=== PATIENT | female | born 1985 | race African-American/Black ===

== ENCOUNTER 2023-09-24 17:36 | Inpatient (IN) | payer MEDICAID ==
[~2023-09-24] VITALS: Ht 165.1 cm; Wt 68.5 kg
[2023-09-24 18:54] LABS: BASOPHILS # (AUTO) 0.1 K/uL (0.0-0.2); EOSINOPHILS % (AUTO) 0.4 % (0.0-6.0); HEMATOCRIT 26 % (33-45); LYMPHOCYTES # (AUTO) 1.9 K/uL (0.8-4.8); MEAN CORPUSCULAR HEMOGLOBIN 26 PG (26.0-33.0); MEAN CORPUSCULAR HGB CONC 31 g/dl (31.0-36.0); MEAN CORPUSCULAR VOLUME 85 fL (82-100); MONOCYTES # (AUTO) 1.4 K/uL (0.1-1.30); NEUTROPHILS # (AUTO) 4.6 K/uL (1.8-8.9); NEUTROPHILS % (AUTO) 57.7 % (43.0-81.0); PLATELET COUNT (AUTO) 138 K/uL (150-450); RED BLOOD CELL COUNT(AUTO) 3.06 MIL/uL (4.0-5.2); RED CELL DISTRIBUTION WIDTH 21.3 % (11.5-15.0)
[2023-09-24 18:56] LABS: LYMPHOCYTES % (AUTO) 28.1 % (20.0-44.0); MONOCYTES % (AUTO) 12.8 % (2.0-12.0)
[2023-09-24 19:00] LABS: CALCIUM, SERUM 9.1 mg/dL (8.5-10.1); CREATININE 1.4 mg/dL (0.6-1.3); POTASSIUM 4.2 mmol/L (3.5-5.1)
[2023-09-24] MEDS: IV NS 0.9% 1,000 ML BAG IV ONE (19:04)
[2023-09-24] MEDS ORDERED: POTASSIUM CHLORIDE 20 MEQ TAB.PRT.SR PO ONE (19:18)
[2023-09-24] MEDS ORDERED: POTASSIUM CL. PREMIX PERIPHER. 100 ML ONE (19:18)
[2023-09-24] MEDS: POTASSIUM CHLORIDE 20 MEQ TAB.PRT.SR PO ONE (19:32)
[2023-09-24] MEDS: POTASSIUM CL. PREMIX PERIPHER. 50 ML IV SCH (19:32)
[2023-09-24] MEDS ORDERED: IV NS 0.9% 250 ML IV ONE (20:17)
[2023-09-24] MEDS ORDERED: IOHEXOL-350 100 ML VIAL IV ONE (20:17)
[2023-09-25] MEDS ORDERED: ONDANSETRON HCL/PF 4 MG/2 ML VIAL IV PRN (01:30)
[2023-09-25] MEDS ORDERED: MORPHINE SULFATE INJ 4 MG/ML DISP.SYRIN IM PRN (01:30)
[2023-09-25 04:33] VITALS: BP 129/96; TEMP 98.8; O2SAT 99
[2023-09-25 08:00] VITALS: BP 124/88; TEMP 98.4; O2SAT 100
[2023-09-25] MEDS ORDERED: IBUP-2715 PO (08:05)
[2023-09-25] MEDS ORDERED: SENN-261 PO (08:05)
[2023-09-25] MEDS ORDERED: ASCO-340 PO (08:05)
[2023-09-25] MEDS ORDERED: DICL75TA5 PO (08:05)
[2023-09-25] MEDS ORDERED: MAGN200T4 PO (08:05)
[2023-09-25] MEDS ORDERED: DIPH50CA4 PO (08:05)
[2023-09-25] MEDS ORDERED: ONDA-97 PO (08:05)
[2023-09-25] MEDS ORDERED: ACET-2030 PO (08:05)
[2023-09-25 09:40] LABS: BASOPHILS # (AUTO) 0.1 K/uL (0.0-0.2); BASOPHILS % (AUTO) 0.9 % (0.0-2.0); EOSINOPHILS % (AUTO) 0.4 % (0.0-6.0); HEMATOCRIT 24 % (33-45); HEMOGLOBIN 7.4 g/dL (11.5-14.8); LYMPHOCYTES # (AUTO) 2.1 K/uL (0.8-4.8); MEAN CORPUSCULAR HEMOGLOBIN 27 PG (26.0-33.0); MEAN CORPUSCULAR HGB CONC 31 g/dl (31.0-36.0); MEAN CORPUSCULAR VOLUME 86 fL (82-100); MONOCYTES # (AUTO) 1.3 K/uL (0.1-1.30); MONOCYTES % (AUTO) 17.2 % (2.0-12.0); NEUTROPHILS # (AUTO) 4.1 K/uL (1.8-8.9); NEUTROPHILS % (AUTO) 53.5 % (43.0-81.0); PLATELET COUNT (AUTO) 131 K/uL (150-450); RED BLOOD CELL COUNT(AUTO) 2.78 MIL/uL (4.0-5.2); RED CELL DISTRIBUTION WIDTH 21.3 % (11.5-15.0); WHITE BLOOD COUNT (AUTO) 7.6 K/uL (4.3-11.0)
[2023-09-25] MEDS: Potassium Chloride 10 MEQ in IV D5/ 0.9% NACL 1,000 ML IV SCH (09:46)
[2023-09-25 09:50] LABS: CALCIUM, SERUM 9.2 mg/dL (8.5-10.1); CREATININE 1.2 mg/dL (0.6-1.3); POTASSIUM 4.5 mmol/L (3.5-5.1)
[2023-09-25 09:55] LABS: INR 1.07 (0.91-1.10); PARTIAL THROMBOPLASTIN TIME 32.6 SEC (24.3-34.3); PROTHROMBIN TIME 11.3 SECS (9.2-11.1)
[2023-09-25 12:00] VITALS: BP 124/90; TEMP 98.4; O2SAT 97
[2023-09-25] MEDS: SOD FERRIC GLUC 125 MG in IV NS 0.9% 100 ML IV SCH (13:28)
[2023-09-25 15:37] LABS: PROTEIN, BODY FLUID 4.8 G/DL
[2023-09-25 16:00] VITALS: BP 120/85; TEMP 98.4; O2SAT 99
[2023-09-25 16:22] LABS: WBC, BODY FLUID 1129 /cu. mm. (0-200)
[2023-09-25 16:28] LABS: TOTAL VOLUME,BODY FLUID 1650 mL
[2023-09-25 16:33] LABS: APPEARANCE,SPUN,BODY FLUID CLEAR (CLEAR)
[2023-09-25 20:00] VITALS: BP 122/79; TEMP 98.4; O2SAT 100
[2023-09-25 20:43] LABS: MONOCYTES,BODY FLUID 22 %; POLYNUCLEAR, BODY FLUID 22 % (0-25)
[2023-09-26] VITALS (7 sets, daily range): BP systolic 110–127; BP diastolic 68–95; TEMP 97.7–98.4; O2SAT 97–100
[2023-09-26] MEDS ORDERED: IOHEXOL-300 100 ML VIAL IV ONE (09:07)
[2023-09-26] MEDS ORDERED: IV NS 0.9% 250 ML IV ONE (09:08)
[2023-09-26 15:32] LABS: BASOPHILS # (AUTO) 0.1 K/uL (0.0-0.2); BASOPHILS % (AUTO) 0.8 % (0.0-2.0); EOSINOPHILS # (AUTO) 0.1 K/uL (0.0-0.7); EOSINOPHILS % (AUTO) 1.2 % (0.0-6.0); HEMATOCRIT 25 % (33-45); HEMOGLOBIN 8.1 g/dL (11.5-14.8); LYMPHOCYTES # (AUTO) 2.2 K/uL (0.8-4.8); MEAN CORPUSCULAR HEMOGLOBIN 27 PG (26.0-33.0); MEAN CORPUSCULAR HGB CONC 32 g/dl (31.0-36.0); MEAN CORPUSCULAR VOLUME 85 fL (82-100); MONOCYTES # (AUTO) 0.8 K/uL (0.1-1.30); MONOCYTES % (AUTO) 11.7 % (2.0-12.0); NEUTROPHILS # (AUTO) 3.9 K/uL (1.8-8.9); NEUTROPHILS % (AUTO) 55.3 % (43.0-81.0); PLATELET COUNT (AUTO) 147 K/uL (150-450); RED CELL DISTRIBUTION WIDTH 20.7 % (11.5-15.0); RETICULOCYTE COUNT 3.8 % (0.6-2.5); WHITE BLOOD COUNT (AUTO) 7.1 K/uL (4.3-11.0)
[2023-09-26 15:43] LABS: RHEUMATOID FACTOR SCREEN NEGATIVE (NEGATIVE)
[2023-09-26 16:33] LABS: ALBUMIN 1.9 g/dL (3.4-5.0); BILIRUBIN,TOTAL 0.6 mg/dL (0.2-1.0); CALCIUM, SERUM 9.1 mg/dL (8.5-10.1); CREATININE 1.2 mg/dL (0.6-1.3); POTASSIUM 4.4 mmol/L (3.5-5.1); TOTAL PROTEIN, SERUM 7.8 g/dL (6.4-8.2)
[2023-09-26 16:36] LABS: C-REACTIVE PROTEIN 11.58 mg/dL (0.0-0.30)
[2023-09-26 17:15] LABS: THYROID STIMULATING HORMONE 2.16 uIU/mL (0.358-3.74)
[2023-09-26] MEDS: ACETAMINOPHEN 325 MG TABLET PO PRN (19:55)
[2023-09-26] MEDS: diphenhydrAMINE HCL 25 MG CAPSULE PO PRN (22:00)
[2023-09-27] VITALS: BP 122/75; TEMP 98.2; O2SAT 100
[2023-09-27 00:05] VITALS: BP 122/75; TEMP 98.2; O2SAT 100
[2023-09-27] MEDS: MORPHINE SULFATE INJ 2 MG/ML DISP.SYRIN IM PRN (01:08)
[2023-09-27 08:00] VITALS: BP 123/90; TEMP 98.2; O2SAT 100
[2023-09-27 08:06] LABS: FOLIC ACID 3.7 ng/mL (>3.0)
[2023-09-27 12:10] LABS: *ANA ANTI-CENTROMERE B AB <0.2 AI (0.0-0.9); *ANA ANTI-DNA(DS) AB, QN <1 IU/mL (0-9); *ANA ANTI-JO-1 <0.2 AI (0.0-0.9); *ANA ANTICHROMATIN ANTIBODY 1.9 AI (0.0-0.9); *ANA RNP ANTIBODIES 0.6 AI (0.0-0.9); *ANA SJOGREN'S ANTI-SS-A <0.2 AI (0.0-0.9); *ANA SJOGREN'S ANTI-SS-B <0.2 AI (0.0-0.9); *ANAANTI-SCLERODERMA-70 AB 0.4 AI (0.0-0.9); *ANASMITH AB <0.2 AI (0.0-0.9)
[2023-09-27 13:11] LABS: HEPATITIS B SURFACE AB Reactive (.)
[2023-09-27 14:07] LABS: IMMUNOGLOBULIN A, SERUM 464 mg/dL (87-352); IMMUNOGLOBULIN G, SERUM 2460 mg/dL (586-1602); IMMUNOGLOBULIN M, SERUM 229 mg/dL (26-217)
== END 2023-09-27 13:15 | disposition home health service (06) | DRG 382 ==
LOC: ER 17:40 → TELE 09-25 00:41
PROVIDERS: ADMIT Internal Medicine; ATTEND Internal Medicine
PROC: 0W993ZZ Drainage of Right Pleural Cavity, Percutaneous Approach (ICD-10-PCS; principal; 2023-09-25)
DX: C50.911 Malignant neoplasm of unspecified site of right female breast (principal); C79.51 Secondary malignant neoplasm of bone; D69.6 Thrombocytopenia, unspecified; N17.9 Acute kidney failure, unspecified; I50.9 Heart failure, unspecified; E87.1 Hypo-osmolality and hyponatremia; E86.0 Dehydration; M84.58XA Pathological fracture in neoplastic disease, other specified site, initial encounter for fracture; J91.0 Malignant pleural effusion; R53.1 Weakness; D63.0 Anemia in neoplastic disease
CPT/HCPCS: 36415; 71045-TC; 71260-TC; 80048-TC; 80053-TC; 82040-TC; 82378; 82607-TC; 82728-TC; 82784; 83540-TC; 83880; 84155; 84165; 84443-TC; 84484-TC; 85025-TC; 85045-TC; 85378-TC; 85730-TC; 86140-TC; 86225; 86235; 86300; 86334; 86431-TC; 86706; 86803; 87102-TC; 87340; 89051-TC; 93307-TC; A4223; G0378; J2270; J2916; J3480; J7030; J7042; J7050; Q0163; Q9967

== ENCOUNTER 2023-10-14 10:36 | Inpatient (IN) | payer MEDICAID ==
[~2023-10-14] VITALS: Ht 165.1 cm; Wt 68.9 kg
[~2023-10-14 10:36] MED LIST: ACET-2030 PO; ASCO-340 PO; DICL75TA5 PO; DIPH50CA4 PO; IBUP-2715 PO; MAGN200T4 PO; ONDA-97 PO; SENN-261 PO
[2023-10-14 11:19] LABS: BASOPHILS # (AUTO) 0.1 K/uL (0.0-0.2); BASOPHILS % (AUTO) 1.1 % (0.0-2.0); EOSINOPHILS # (AUTO) 0.2 K/uL (0.0-0.7); EOSINOPHILS % (AUTO) 2.4 % (0.0-6.0); HEMATOCRIT 26 % (33-45); LYMPHOCYTES # (AUTO) 2.5 K/uL (0.8-4.8); LYMPHOCYTES % (AUTO) 28.2 % (20.0-44.0); MEAN CORPUSCULAR HEMOGLOBIN 27 PG (26.0-33.0); MEAN CORPUSCULAR HGB CONC 31 g/dl (31.0-36.0); MEAN CORPUSCULAR VOLUME 86 fL (82-100); MONOCYTES # (AUTO) 1.3 K/uL (0.1-1.30); MONOCYTES % (AUTO) 14.9 % (2.0-12.0); NEUTROPHILS # (AUTO) 4.7 K/uL (1.8-8.9); NEUTROPHILS % (AUTO) 53.4 % (43.0-81.0); PLATELET COUNT (AUTO) 133 K/uL (150-450); RED BLOOD CELL COUNT(AUTO) 2.96 MIL/uL (4.0-5.2); RED CELL DISTRIBUTION WIDTH 20.9 % (11.5-15.0); WHITE BLOOD COUNT (AUTO) 8.7 K/uL (4.3-11.0)
[2023-10-14] MEDS ORDERED: IOHEXOL-350 100 ML VIAL IV ONE (11:19)
[2023-10-14 11:27] LABS: CALCIUM, SERUM 10.3 mg/dL (8.5-10.1); CARBON DIOXIDE 25 mmol/L (21-32); CHLORIDE 99 mmol/L (98-107); CREATININE 1.3 mg/dL (0.6-1.3); GLUCOSE 90 mg/dL (74-106); POTASSIUM 3.8 mmol/L (3.5-5.1); SODIUM SERUM 136 mmol/L (136-145); UREA NITROGEN, BLOOD 11 mg/dL (7-18)
[2023-10-14] MEDS ORDERED: VITA40TA PO (11:38)
[2023-10-14] MEDS ORDERED: HYDR-4303 PO (11:38)
[2023-10-14] MEDS ORDERED: CALC-1143 PO (11:38)
[2023-10-14] MEDS ORDERED: CHOL100043 PO (11:38)
[2023-10-14 11:42] LABS: NT-PRO BNP 315 pg/mL (0-125)
[2023-10-14 12:41] LABS: ANISOCYTOSIS 1+; BASOPHILS % (MANUAL) 0 % (0.0-2.0); EOSINOPHILS % (MANUAL) 1 % (0-4); LYMPHOCYTES % (MANUAL) 25 % (16-48); MONOCYTES % (MANUAL) 13 % (0-11.0); NEUTROPHILS % (MANUAL) 61 (42-76); PLATELET ESTIMATE DECREASED; STOMATOCYTES 1+; TEAR DROP CELLS 1+
[2023-10-14] MEDS: HYDROCODONE/APAP 5/325MG TABLET PO PRN (14:14)
[2023-10-14] MEDS: SOD FERRIC GLUC 125 MG in IV NS 0.9% 100 ML IV SCH (15:11)
[2023-10-14 15:46] LABS: INR 1.03 (0.91-1.10); PARTIAL THROMBOPLASTIN TIME 28.1 SEC (24.3-34.3); PROTHROMBIN TIME 10.9 SECS (9.2-11.1)
[2023-10-14 16:00] VITALS: BP 134/85; TEMP 99; O2SAT 97
[2023-10-14 20:00] VITALS: BP 140/98; TEMP 100.4; O2SAT 98
[2023-10-14] MEDS: ACETAMINOPHEN 325 MG TABLET PO PRN (20:37)
[2023-10-15] VITALS: BP 141/96; TEMP 98.5; O2SAT 98
[2023-10-15] MEDS: ZOLPIDEM TARTRATE 5 MG TABLET PO PRN (00:02)
[2023-10-15 04:00] VITALS: BP 134/97; TEMP 98.1; O2SAT 98
[2023-10-15] MEDS ORDERED: ANESTHESIA TRAY IN PYXIS 1 EA TRAY MC ONE (07:28)
[2023-10-15] MEDS ORDERED: LIDOCAINE 1% INJ 50 ML MDV IJ ONE (07:28)
[2023-10-15 07:30] LABS: PREGNANCY TEST URINE QUAL NEGATIVE (NEGATIVE)
[2023-10-15] MEDS ORDERED: ROCURONIUM BROMIDE 50 MG/5 ML ONE (07:47)
[2023-10-15] MEDS ORDERED: FENTANYL PF 250MCG/5ML AMPUL ONE (07:47)
[2023-10-15] MEDS ORDERED: SEVOFLURANE 250 ML BOTTLE IH ONE (08:00)
[2023-10-15] MEDS: CYANOCOBALAMIN 500 MCG TABLET PO SCH (08:56)
[2023-10-15] MEDS: FOLIC ACID 1 MG TABLET PO SCH (08:56)
[2023-10-15] MEDS ORDERED: FENTANYL PF 100MCG/2ML AMPUL ONE (09:00)
[2023-10-15 10:00] VITALS: BP 118/72; TEMP 97.8; O2SAT 98
[2023-10-15] MEDS: MORPHINE SULFATE INJ 2 MG/ML DISP.SYRIN IV PRN (11:25)
[2023-10-15 12:00] VITALS: BP 114/81; TEMP 97.9; O2SAT 100
[2023-10-15 16:00] VITALS: BP 126/76; TEMP 97.9; O2SAT 99
[2023-10-15] MEDS: ONDANSETRON HCL/PF 4 MG/2 ML VIAL IV PRN (17:43)
[2023-10-15] MEDS: HYDROMORPHONE 1 MG/1 ML DISP.SYRIN IV PRN (19:48)
[2023-10-15 20:00] VITALS: BP 125/85; TEMP 98.4; O2SAT 99
[2023-10-16] VITALS: BP 148/102; TEMP 98.1; O2SAT 95
[2023-10-16 06:08] VITALS: BP 122/43; TEMP 97.5; O2SAT 95
[2023-10-16 08:00] VITALS: BP 138/95; TEMP 97.5; O2SAT 94
[2023-10-16] MEDS: MORPHINE SULFATE SR 15 MG TABLET.SA PO SCH (09:00)
[2023-10-16] MEDS: PROCHLORPERAZINE EDISYLATE 10 MG/2 ML VIAL IVP PRN (10:22)
[2023-10-16 12:00] VITALS: BP 123/75; TEMP 97.3; O2SAT 97
[2023-10-16 16:00] VITALS: BP 133/87; TEMP 97.3; O2SAT 91
[2023-10-16 20:00] VITALS: BP 116/77; TEMP 97.1; O2SAT 98
[2023-10-17] VITALS: BP 116/72; TEMP 98.3; O2SAT 95
[2023-10-17 04:00] VITALS: BP 113/66; TEMP 98.1; O2SAT 96
[2023-10-17 08:00] VITALS: BP 138/89; TEMP 98.4; O2SAT 90
[2023-10-17] MEDS ORDERED: MORP15TA10 PO (08:14)
[2023-10-17] MEDS ORDERED: NALO4SPR BNOSTRILS (08:20)
[2023-10-17 13:42] VITALS: O2SAT 88
[2023-10-17 13:43] VITALS: O2SAT 94
[2023-10-17 16:00] VITALS: BP 130/91; TEMP 97.7; O2SAT 92
== END 2023-10-17 17:10 | disposition home health service (06) | DRG 382 ==
LOC: ER 10:37 → TELE1 13:12
PROVIDERS: ADMIT Internal Medicine; ATTEND Internal Medicine
PROC: 0W9B30Z Drainage of Left Pleural Cavity with Drainage Device, Percutaneous Approach (ICD-10-PCS; principal; 2023-10-15)
PROC: 0W9930Z Drainage of Right Pleural Cavity with Drainage Device, Percutaneous Approach (ICD-10-PCS; 2023-10-15)
DX: C50.911 Malignant neoplasm of unspecified site of right female breast (principal); C79.51 Secondary malignant neoplasm of bone; J91.0 Malignant pleural effusion; E83.52 Hypercalcemia; D63.0 Anemia in neoplastic disease; G89.29 Other chronic pain; Z17.0 Estrogen receptor positive status [ER+]
CPT/HCPCS: 36415; 71045-TC; 80048-TC; 83880; 84484-TC; 84703-TC; 85025-TC; 85610-TC; 85730-TC; 93970-TC; 98960; A4223; G0378; J0461; J0690; J0780; J1170; J2270; J2405; J2704; J2916; J3010; J3490; J7030; J7050; Q9967

== ENCOUNTER 2023-11-25 11:06 | Emergency (ER) | payer MEDICAID ==
[~2023-11-25] VITALS: Ht 165.1 cm; Wt 68.0 kg
[~2023-11-25 11:06] MED LIST changes: -DICL75TA5 PO; -DIPH50CA4 PO; +HYDR-4303 PO; -IBUP-2715 PO; +MORP15TA10 PO; +NALO4SPR BNOSTRILS; -SENN-261 PO; +VITA40TA PO
[2023-11-25] MEDS ORDERED: ONDANSETRON HCL/PF 4 MG/2 ML VIAL ONE ×2 (12:53→14:23)
[2023-11-25] MEDS: IV NS 0.9% 1,000 ML BAG IV ONE ×2 (12:58→14:44)
[2023-11-25] MEDS: ONDANSETRON HCL/PF 4 MG/2 ML VIAL IVP ONE ×2 (13:00→14:43)
[2023-11-25 13:33] LABS: CALCIUM, SERUM 11.9 mg/dL (8.5-10.1); CARBON DIOXIDE 27 mmol/L (21-32); CHLORIDE 99 mmol/L (98-107); CREATININE 1.8 mg/dL (0.6-1.3); GLUCOSE 112 mg/dL (74-106); SODIUM SERUM 139 mmol/L (136-145); UREA NITROGEN, BLOOD 26 mg/dL (7-18)
[2023-11-25 13:43] LABS: LACTIC ACID 2.6 mmol/L (0.4-2.0)
[2023-11-25 13:46] LABS: BASOPHILS # (AUTO) 0.1 K/uL (0.0-0.2); BASOPHILS % (AUTO) 0.9 % (0.0-2.0); EOSINOPHILS # (AUTO) 0.1 K/uL (0.0-0.7); EOSINOPHILS % (AUTO) 1.6 % (0.0-6.0); HEMATOCRIT 24 % (33-45); HEMOGLOBIN 7.5 g/dL (11.5-14.8); LYMPHOCYTES # (AUTO) 1.8 K/uL (0.8-4.8); LYMPHOCYTES % (AUTO) 23.1 % (20.0-44.0); MEAN CORPUSCULAR HEMOGLOBIN 27 PG (26.0-33.0); MEAN CORPUSCULAR HGB CONC 31 g/dl (31.0-36.0); MEAN CORPUSCULAR VOLUME 86 fL (82-100); MONOCYTES # (AUTO) 1.1 K/uL (0.1-1.30); MONOCYTES % (AUTO) 14.3 % (2.0-12.0); NEUTROPHILS # (AUTO) 4.7 K/uL (1.8-8.9); NEUTROPHILS % (AUTO) 60.1 % (43.0-81.0); PLATELET COUNT (AUTO) 150 K/uL (150-450); RED BLOOD CELL COUNT(AUTO) 2.82 MIL/uL (4.0-5.2); RED CELL DISTRIBUTION WIDTH 19.3 % (11.5-15.0); WHITE BLOOD COUNT (AUTO) 7.9 K/uL (4.3-11.0)
[2023-11-25 13:47] LABS: ALANINE AMINOTRANSFERASE 25 U/L (12-78); ALBUMIN 2.4 g/dL (3.4-5.0); ALKALINE PHOSPHATASE 138 U/L (46-116); ASPARTATE AMINOTRANSFERASE 59 U/L (15-37); BILIRUBIN,DIRECT 0.1 mg/dL (0.0-0.2); BILIRUBIN,TOTAL 0.4 mg/dL (0.2-1.0); LIPASE 54 U/L (16-77); TOTAL PROTEIN, SERUM 9.1 g/dL (6.4-8.2)
[2023-11-25] MEDS ORDERED: HYDROMORPHONE 1 MG/1 ML DISP.SYRIN ONE (14:24)
[2023-11-25] MEDS: HYDROMORPHONE INJ 2 MG/ML DISP.SYRIN IV ONE (14:45)
[2023-11-25] MEDS: MORPHINE SULFATE INJ 2 MG/ML DISP.SYRIN IV ONE (14:46)
[2023-11-25 15:01] LABS: APPEARANCE,URINE CLEAR (CLEAR); BILIRUBIN,URINE NEGATIVE (NEGATIVE); BLOOD, URINE NEGATIVE Ery/uL (NEGATIVE); COLOR,URINE YELLOW (YELLOW); KETONES,URINE NEGATIVE (NEGATIVE); LEUKOCYTE ESTERASE ,URINE NEGATIVE (NEGATIVE); NITRITE, URINE NEGATIVE (NEGATIVE); PH,URINE 6.5 (5.0-8.0); PROTEIN,URINE NEGATIVE (NEGATIVE); UGLUCOSE NEGATIVE (NEGATIVE); UROBILINOGEN,URINE 0.2 EU/dL (0.2)
[2023-11-25 20:13] VITALS: BP 124/85; TEMP 98; O2SAT 98
== END 2023-11-25 20:13 | disposition left against medical advice (07) ==
LOC: ER 11:11
DX: E83.52 Hypercalcemia (principal); E86.0 Dehydration; N19 Unspecified kidney failure; R52 Pain, unspecified; R11.2 Nausea with vomiting, unspecified; Z85.3 Personal history of malignant neoplasm of breast; Z85.830 Personal history of malignant neoplasm of bone
CPT/HCPCS: 99285; 96374; 96361; 71045; 96375; 93005; 72170; 96376; 85025; 80048; 87040 ×2; 83605 ×2; 83690; 80076; 81003; 36415; J2405 ×2; J7030 ×2; J1170

== ENCOUNTER 2024-03-11 14:36 | Emergency (ER) | payer MEDICAID ==
[~2024-03-11] VITALS: Ht 165.1 cm; Wt 56.7 kg
[2024-03-11] MEDS ORDERED: HYDROMORPHONE 1 MG/1 ML DISP.SYRIN ONE (16:53)
[2024-03-11] MEDS ORDERED: ONDANSETRON HCL/PF 4 MG/2 ML VIAL ONE (16:53)
[2024-03-11] MEDS: HYDROMORPHONE 1 MG/1 ML DISP.SYRIN IV ONE (17:00)
[2024-03-11] MEDS: ONDANSETRON HCL/PF - ER 4 MG/2 ML VIAL IV ONE (17:00)
[2024-03-11] MEDS: DOXYCYCLINE HYCLATE (100 MG) 100 MG TABLET PO ONE (19:00)
[2024-03-11] MEDS ORDERED: DOXY100C2 PO (19:29)
[2024-03-11] MEDS ORDERED: DOXYCYCLINE HYCLATE (100 MG) 100 MG TABLET ONE (19:42)
[2024-03-11 19:50] VITALS: BP 124/68; TEMP 98.8; O2SAT 99
[2024-03-12] MEDS ORDERED: MORP15TA60 PO (15:45)
[2024-03-12] MEDS ORDERED: VITAMIN D PO (15:45)
[2024-03-12] MEDS ORDERED: HYDR2TAB4 PO (15:45)
[2024-03-12] MEDS ORDERED: MAGN200T4 PO (15:45)
[2024-03-12] MEDS ORDERED: [UNRECOGNIZED DRUG - OTHER] PO (15:45)
[2024-03-12] MEDS ORDERED: DOXY100C2 PO (20:03)
== END 2024-03-11 19:50 | disposition home or self-care (01) ==
LOC: ER 14:38
DX: C50.919 Malignant neoplasm of unspecified site of unspecified female breast (principal); J91.0 Malignant pleural effusion; T82.897A Other specified complication of cardiac prosthetic devices, implants and grafts, initial encounter; R93.49 Abnormal radiologic findings on diagnostic imaging of other urinary organs; Z79.899 Other long term (current) drug therapy; Y92.89 Other specified places as the place of occurrence of the external cause
CPT/HCPCS: 99285; 96374; 71045; 96375; J2405 ×2; A6253; A6403; J1171

== ENCOUNTER 2024-03-12 12:29 | Emergency (ER) | payer MEDICAID ==
[~2024-03-12] VITALS: Ht 165.1 cm; Wt 56.7 kg
[~2024-03-12 12:29] MED LIST changes: +DOXY100C2 PO
[2024-03-12] MEDS ORDERED: HYDROMORPHONE 1 MG/1 ML DISP.SYRIN ONE (13:18)
[2024-03-12] MEDS ORDERED: ONDANSETRON HCL/PF 4 MG/2 ML VIAL ONE (13:18)
[2024-03-12] MEDS ORDERED: KETOROLAC TROMETHAMINE 15 MG/ML VIAL ONE (13:18)
[2024-03-12] MEDS ORDERED: ACETAMINOPHEN ES 500 MG TABLET ONE (13:19)
[2024-03-12] MEDS: KETOROLAC TROMETHAMINE 15 MG/ML VIAL IV ONE (13:30)
[2024-03-12] MEDS: HYDROMORPHONE INJ 2 MG/ML DISP.SYRIN IV ONE (13:30)
[2024-03-12] MEDS: ONDANSETRON HCL/PF 4 MG/2 ML VIAL IV ONE (13:30)
[2024-03-12] MEDS: IV NS 0.9% 1,000 ML BAG IV ONE ×2 (13:30→16:00)
[2024-03-12] MEDS: ACETAMINOPHEN ES 500 MG TABLET PO ONE (13:43)
[2024-03-12 13:45] LABS: BASOPHILS # (AUTO) 0.3 K/uL (0.0-0.2); EOSINOPHILS # (AUTO) 0.3 K/uL (0.0-0.7); EOSINOPHILS % (AUTO) 2.1 % (0.0-6.0); HEMATOCRIT 26 % (33-45); HEMOGLOBIN 7.9 g/dL (11.5-14.8); LYMPHOCYTES # (AUTO) 3.2 K/uL (0.8-4.8); LYMPHOCYTES % (AUTO) 23.4 % (20.0-44.0); MEAN CORPUSCULAR HEMOGLOBIN 28 PG (26.0-33.0); MEAN CORPUSCULAR HGB CONC 31 g/dl (31.0-36.0); MEAN CORPUSCULAR VOLUME 90 fL (82-100); MONOCYTES # (AUTO) 2.7 K/uL (0.1-1.30); MONOCYTES % (AUTO) 19.8 % (2.0-12.0); NEUTROPHILS # (AUTO) 7.2 K/uL (1.8-8.9); NEUTROPHILS % (AUTO) 52.7 % (43.0-81.0); PLATELET COUNT (AUTO) 78 K/uL (150-450); RED BLOOD CELL COUNT(AUTO) 2.86 MIL/uL (4.0-5.2); RED CELL DISTRIBUTION WIDTH 20.3 % (11.5-15.0); WHITE BLOOD COUNT (AUTO) 13.7 K/uL (4.3-11.0)
[2024-03-12 13:57] LABS: INR 1.05 (0.91-1.10); PARTIAL THROMBOPLASTIN TIME 37.7 SEC (24.3-34.3); PROTHROMBIN TIME 11.1 SECS (9.2-11.1)
[2024-03-12 13:58] LABS: CALCIUM, SERUM 8.5 mg/dL (8.5-10.1); CREATININE 1.3 mg/dL (0.6-1.3); POTASSIUM 4.7 mmol/L (3.5-5.1)
[2024-03-12 14:05] LABS: ALBUMIN 2.8 g/dL (3.4-5.0); BILIRUBIN,DIRECT 0.2 mg/dL (0.0-0.2); BILIRUBIN,TOTAL 0.7 mg/dL (0.2-1.0); TOTAL PROTEIN, SERUM 9.2 g/dL (6.4-8.2)
[2024-03-12] MEDS: CEFEPIME 1 GM in IV D5W 50 ML IV ONE (15:00)
[2024-03-12] MEDS ORDERED: MORP15TA60 PO (15:45)
[2024-03-12] MEDS ORDERED: MAGN200T4 PO (15:45)
[2024-03-12] MEDS ORDERED: HYDR2TAB4 PO (15:45)
[2024-03-12] MEDS ORDERED: VITAMIN D PO (15:45)
[2024-03-12] MEDS ORDERED: [UNRECOGNIZED DRUG - OTHER] PO (15:45)
[2024-03-12] MEDS: VANCOMYCIN 1 GM in IV D5W 250 ML IV ONE (17:00)
[2024-03-12 18:26] LABS: BAND % (MANUAL) 1 % (0.0-5.0); LYMPHOCYTES % (MANUAL) 41 % (16-48); MONOCYTES % (MANUAL) 12 % (0-11.0); NEUTROPHILS % (MANUAL) 46 (42-76)
[2024-03-12 18:27] LABS: ANISOCYTOSIS 1+; PLATELET ESTIMATE DECREASED; ROULEAUX 1+
[2024-03-12 18:28] LABS: STOMATOCYTES 1+
[2024-03-12] MEDS ORDERED: DOXY100C2 PO (20:03)
[2024-03-12] MEDS ORDERED: HYDROMORPHONE HCL 2 MG TABLET ONE (20:32)
[2024-03-12] MEDS: HYDROMORPHONE HCL 2 MG TABLET PO PRN (20:42)
[2024-03-12 20:47] VITALS: BP 126/89; TEMP 98; O2SAT 98
== END 2024-03-12 20:47 | disposition left against medical advice (07) ==
LOC: ER 12:42
DX: J18.9 Pneumonia, unspecified organism (principal); M79.604 Pain in right leg; M79.605 Pain in left leg; M79.89 Other specified soft tissue disorders; R11.10 Vomiting, unspecified; D64.9 Anemia, unspecified; G89.29 Other chronic pain; J90 Pleural effusion, not elsewhere classified; D72.829 Elevated white blood cell count, unspecified; D69.6 Thrombocytopenia, unspecified; Z85.3 Personal history of malignant neoplasm of breast; Z20.822 Contact with and (suspected) exposure to COVID-19
CPT/HCPCS: 99285; 93970; 96365; 96375; 96361; 71045; 96367; 87426; 93005; 85025; 80048; 87040; 83605; 80076; 36415; 85730; 86850; 85007; J3370; J2405; J7060; J7030; J0692; J1171; J1885; A4223 ×2

== ENCOUNTER 2024-05-17 16:52 | Inpatient (IN) | payer MEDICAID ==
[~2024-05-17] VITALS: Ht 165.1 cm; Wt 43.1 kg
[~2024-05-17 16:52] MED LIST changes: -ACET-2030 PO; -ASCO-340 PO; -HYDR-4303 PO; +HYDR2TAB4 PO; -MORP15TA10 PO; +MORP15TA60 PO; -NALO4SPR BNOSTRILS; -ONDA-97 PO; -VITA40TA PO; +VITAMIN D PO; +[UNRECOGNIZED DRUG - OTHER] PO
[2024-05-17] MEDS ORDERED: ONDANSETRON HCL/PF 4 MG/2 ML VIAL ONE (17:41)
[2024-05-17] MEDS ORDERED: HYDROMORPHONE 1 MG/1 ML DISP.SYRIN ONE (17:41)
[2024-05-17] MEDS: IV NS 0.9% 1,000 ML BAG IV ONE ×2 (17:48→21:30)
[2024-05-17] MEDS: HYDROMORPHONE INJ 2 MG/ML DISP.SYRIN IV ONE (17:48)
[2024-05-17] MEDS: ONDANSETRON HCL/PF 4 MG/2 ML VIAL IVP ONE (17:48)
[2024-05-17 17:56] LABS: BASOPHILS # (AUTO) 0.1 K/uL (0.0-0.2); BASOPHILS % (AUTO) 1.6 % (0.0-2.0); EOSINOPHILS # (AUTO) 0.1 K/uL (0.0-0.7); EOSINOPHILS % (AUTO) 1.5 % (0.0-6.0); HEMATOCRIT 23 % (33-45); HEMOGLOBIN 7.3 g/dL (11.5-14.8); LYMPHOCYTES # (AUTO) 2.1 K/uL (0.8-4.8); LYMPHOCYTES % (AUTO) 25.2 % (20.0-44.0); MEAN CORPUSCULAR HEMOGLOBIN 28 PG (26.0-33.0); MEAN CORPUSCULAR HGB CONC 31 g/dl (31.0-36.0); MEAN CORPUSCULAR VOLUME 89 fL (82-100); MONOCYTES # (AUTO) 1.5 K/uL (0.1-1.30); NEUTROPHILS # (AUTO) 4.6 K/uL (1.8-8.9); NEUTROPHILS % (AUTO) 53.7 % (43.0-81.0); PLATELET COUNT (AUTO) 93 K/uL (150-450); RED BLOOD CELL COUNT(AUTO) 2.64 MIL/uL (4.0-5.2); RED CELL DISTRIBUTION WIDTH 17.9 % (11.5-15.0); WHITE BLOOD COUNT (AUTO) 8.5 K/uL (4.3-11.0)
[2024-05-17 18:22] LABS: CALCIUM, SERUM 9.8 mg/dL (8.5-10.1); CREATININE 1.6 mg/dL (0.6-1.3); POTASSIUM 4.3 mmol/L (3.5-5.1)
[2024-05-17 18:26] LABS: INR 1.08 (0.91-1.10); PARTIAL THROMBOPLASTIN TIME 27.5 SEC (24.3-34.3); PROTHROMBIN TIME 11.4 SECS (9.2-11.1)
[2024-05-17 18:27] LABS: ALBUMIN 2.8 g/dL (3.4-5.0); BILIRUBIN,DIRECT 0.2 mg/dL (0.0-0.2); BILIRUBIN,TOTAL 0.7 mg/dL (0.2-1.0); TOTAL PROTEIN, SERUM 9.5 g/dL (6.4-8.2)
[2024-05-17 19:05] LABS: ANISOCYTOSIS 1+; BAND % (MANUAL) 2 % (0.0-5.0); EOSINOPHILS % (MANUAL) 2 % (0-4); LYMPHOCYTES % (MANUAL) 28 % (16-48); MONOCYTES % (MANUAL) 6 % (0-11.0); NEUTROPHILS % (MANUAL) 62 (42-76); PLATELET ESTIMATE DECRE
[2024-05-17 19:06] LABS: ROULEAUX 1+
[2024-05-17] MEDS ORDERED: IV NS 0.9% 250 ML IV ONE (20:08)
[2024-05-17] MEDS ORDERED: IOHEXOL-350 100 ML VIAL IV ONE (20:08)
[2024-05-18] MEDS ORDERED: HYDROMORPHONE 1 MG/1 ML DISP.SYRIN ONE ×4 (00:06→23:18)
[2024-05-18] MEDS: HYDROMORPHONE 1 MG/1 ML DISP.SYRIN IV PRN (00:13)
[2024-05-18] MEDS ORDERED: HYDROCODONE/APAP 5/325MG TABLET PO PRN (06:30)
[2024-05-18] MEDS ORDERED: ZOLPIDEM TARTRATE 5 MG TABLET PO PRN (06:30)
[2024-05-18] MEDS ORDERED: ACETAMINOPHEN 325 MG TABLET PO PRN (06:30)
[2024-05-18] MEDS: IV NS 0.9% 1,000 ML IV PRN (07:30)
[2024-05-18 07:45] LABS: BASOPHILS # (AUTO) 0.1 K/uL (0.0-0.2); BASOPHILS % (AUTO) 1.3 % (0.0-2.0); EOSINOPHILS # (AUTO) 0.1 K/uL (0.0-0.7); EOSINOPHILS % (AUTO) 1.7 % (0.0-6.0); HEMATOCRIT 23 % (33-45); HEMOGLOBIN 7.1 g/dL (11.5-14.8); LYMPHOCYTES # (AUTO) 2.3 K/uL (0.8-4.8); LYMPHOCYTES % (AUTO) 26.2 % (20.0-44.0); MEAN CORPUSCULAR HEMOGLOBIN 28 PG (26.0-33.0); MEAN CORPUSCULAR HGB CONC 32 g/dl (31.0-36.0); MEAN CORPUSCULAR VOLUME 90 fL (82-100); MONOCYTES # (AUTO) 1.5 K/uL (0.1-1.30); MONOCYTES % (AUTO) 16.9 % (2.0-12.0); NEUTROPHILS # (AUTO) 4.7 K/uL (1.8-8.9); NEUTROPHILS % (AUTO) 53.9 % (43.0-81.0); PLATELET COUNT (AUTO) 83 K/uL (150-450); RED BLOOD CELL COUNT(AUTO) 2.51 MIL/uL (4.0-5.2); WHITE BLOOD COUNT (AUTO) 8.7 K/uL (4.3-11.0)
[2024-05-18 07:57] LABS: INR 1.07 (0.91-1.10); PROTHROMBIN TIME 11.3 SECS (9.2-11.1)
[2024-05-18 08:11] LABS: CALCIUM, SERUM 8.6 mg/dL (8.5-10.1); CREATININE 1.4 mg/dL (0.6-1.3); POTASSIUM 4.7 mmol/L (3.5-5.1)
[2024-05-18 08:45] LABS: THYROID STIMULATING HORMONE 3.61 uIU/mL (0.358-3.74)
[2024-05-18 08:57] LABS: BAND % (MANUAL) 1 % (0.0-5.0); EOSINOPHILS % (MANUAL) 2 % (0-4); LYMPHOCYTES % (MANUAL) 27 % (16-48); METAMYELOCYTES % 1 % (0-0); MONOCYTES % (MANUAL) 14 % (0-11.0); MYELOCYTES % 6 % (0-0)
[2024-05-18 08:58] LABS: ANISOCYTOSIS 1+; NEUTROPHILS % (MANUAL) 49 (42-76); PLATELET ESTIMATE DECREASED
[2024-05-18] MEDS: PANTOPRAZOLE 40 MG VIAL IV SCH (09:24)
[2024-05-18] MEDS: ONDANSETRON HCL/PF 4 MG/2 ML VIAL IV PRN (09:25)
[2024-05-18] MEDS ORDERED: ONDANSETRON HCL/PF 4 MG/2 ML VIAL ONE (14:58)
[2024-05-18] MEDS: SOD FERRIC GLUC 125 MG in IV NS 0.9% 100 ML IV SCH (15:00)
[2024-05-18] MEDS ORDERED: METO5TAB87 PO (17:54)
[2024-05-18] MEDS: METOCLOPRAMIDE HCL 10 MG/2 ML VIAL IV SCH (18:30)
[2024-05-18] MEDS ORDERED: METOCLOPRAMIDE HCL 10 MG/2 ML VIAL ONE (23:18)
[2024-05-19] MEDS ORDERED: AMOX-430 PO (09:06)
[2024-05-19] MEDS ORDERED: METOCLOPRAMIDE HCL 10 MG/2 ML VIAL ONE (10:09)
[2024-05-19] MEDS ORDERED: HYDROMORPHONE 1 MG/1 ML DISP.SYRIN ONE (11:12)
[2024-05-19 11:42] LABS: BASOPHILS # (AUTO) 0.1 K/uL (0.0-0.2); EOSINOPHILS # (AUTO) 0.1 K/uL (0.0-0.7); EOSINOPHILS % (AUTO) 1.6 % (0.0-6.0); HEMATOCRIT 21 % (33-45); LYMPHOCYTES # (AUTO) 2.1 K/uL (0.8-4.8); LYMPHOCYTES % (AUTO) 24.6 % (20.0-44.0); MEAN CORPUSCULAR HEMOGLOBIN 28 PG (26.0-33.0); MEAN CORPUSCULAR HGB CONC 31 g/dl (31.0-36.0); MEAN CORPUSCULAR VOLUME 91 fL (82-100); MONOCYTES # (AUTO) 1.4 K/uL (0.1-1.30); MONOCYTES % (AUTO) 16.6 % (2.0-12.0); NEUTROPHILS # (AUTO) 4.7 K/uL (1.8-8.9); NEUTROPHILS % (AUTO) 56.2 % (43.0-81.0); PLATELET COUNT (AUTO) 83 K/uL (150-450); RED BLOOD CELL COUNT(AUTO) 2.33 MIL/uL (4.0-5.2); RED CELL DISTRIBUTION WIDTH 18.6 % (11.5-15.0); WHITE BLOOD COUNT (AUTO) 8.4 K/uL (4.3-11.0)
[2024-05-19 11:46] LABS: HEMOGLOBIN 6.5 g/dL (11.5-14.8)
[2024-05-19 11:54] LABS: ALBUMIN 2.4 g/dL (3.4-5.0); BILIRUBIN,TOTAL 0.5 mg/dL (0.2-1.0); CALCIUM, SERUM 8.6 mg/dL (8.5-10.1); CREATININE 1.5 mg/dL (0.6-1.3); POTASSIUM 5.4 mmol/L (3.5-5.1); TOTAL PROTEIN, SERUM 8.1 g/dL (6.4-8.2)
[2024-05-19] MEDS: PIPERACILLIN /TAZOBACTAM 3.375 G in IV D5W 50 ML IV SCH (12:00)
[2024-05-19 12:26] LABS: ANISOCYTOSIS 1+; BAND % (MANUAL) 4 % (0.0-5.0); EOSINOPHILS % (MANUAL) 2 % (0-4); LYMPHOCYTES % (MANUAL) 24 % (16-48); MONOCYTES % (MANUAL) 13 % (0-11.0); PLATELET ESTIMATE DECREASED
[2024-05-19 12:27] LABS: METAMYELOCYTES % 1 % (0-0); MYELOCYTES % 2 % (0-0)
[2024-05-19 12:28] LABS: STOMATOCYTES 1+
[2024-05-19 12:29] LABS: NEUTROPHILS % (MANUAL) 54 (42-76)
[2024-05-19 15:18] VITALS: BP 136/98; TEMP 98.6; O2SAT 98
[2024-05-19] MEDS ORDERED: FERR-68 PO (18:25)
== END 2024-05-19 14:43 | disposition home or self-care (01) | DRG 382 ==
LOC: ER 16:52 → TRANSITION 05-18 03:04
PROVIDERS: ADMIT Internal Medicine; ATTEND Internal Medicine
DX: C50.911 Malignant neoplasm of unspecified site of right female breast (principal); J96.01 Acute respiratory failure with hypoxia; N17.0 Acute kidney failure with tubular necrosis; J69.0 Pneumonitis due to inhalation of food and vomit; I31.31 Malignant pericardial effusion in diseases classified elsewhere; C78.2 Secondary malignant neoplasm of pleura; D69.6 Thrombocytopenia, unspecified; E86.0 Dehydration; C79.51 Secondary malignant neoplasm of bone; D63.0 Anemia in neoplastic disease; J91.0 Malignant pleural effusion; G89.3 Neoplasm related pain (acute) (chronic)
CPT/HCPCS: 36415; 71045-TC; 71250-TC; 80048-TC; 80053-TC; 80076-TC; 83540-TC; 83690-TC; 84443-TC; 85025-TC; 85378-TC; 85610-TC; 85730-TC; 93307-TC; A4223; G0378; J1171; J2405; J2543; J2765; J2916; J7030; J7050; J7060; Q9967

== ENCOUNTER 2024-06-15 15:02 | Emergency (ER) | payer MEDICAID ==
[~2024-06-15] VITALS: Ht 162.6 cm; Wt 56.7 kg
[~2024-06-15 15:02] MED LIST changes: +AMOX-430 PO; -DOXY100C2 PO; +FERR-68 PO; +METO5TAB87 PO; -VITAMIN D PO; -[UNRECOGNIZED DRUG - OTHER] PO
[2024-06-15 15:10] VITALS: BP 138/84; TEMP 98.5; O2SAT 96
[2024-06-15] MEDS ORDERED: HYDROMORPHONE 1 MG/1 ML DISP.SYRIN ONE (15:27)
[2024-06-15] MEDS: HYDROMORPHONE INJ 2 MG/ML DISP.SYRIN IV ONE (15:30)
[2024-06-15 15:41] LABS: ABG BASE EXCESS 0.7 mmol/L (-2.0-3.0); ABG PCO2 42.6 mmHg (32.0-45.0); ABG PH 7.397 (7.350-7.450); ABG PO2 97.2 mmHg (83.0-108.0); ABG TOTAL HEMOGLOBIN 7.4 G/dL (12.0-16.0); COHb 0.4 % (0.5-1.5); MetHb 0.1 % (0.0-1.5); O2Hb 96.5 % (94.0-97.0); SITE, ABG RIGHT RADIAL
[2024-06-15 16:30] LABS: BASOPHILS # (AUTO) 0.1 K/uL (0.0-0.2); BASOPHILS % (AUTO) 1.2 % (0.0-2.0); EOSINOPHILS # (AUTO) 0.1 K/uL (0.0-0.7); EOSINOPHILS % (AUTO) 1.5 % (0.0-6.0); HEMATOCRIT 22 % (33-45); LYMPHOCYTES # (AUTO) 2.8 K/uL (0.8-4.8); LYMPHOCYTES % (AUTO) 28.2 % (20.0-44.0); MEAN CORPUSCULAR HEMOGLOBIN 29 PG (26.0-33.0); MEAN CORPUSCULAR HGB CONC 31 g/dl (31.0-36.0); MEAN CORPUSCULAR VOLUME 92 fL (82-100); MONOCYTES # (AUTO) 2.3 K/uL (0.1-1.30); MONOCYTES % (AUTO) 23.3 % (2.0-12.0); NEUTROPHILS # (AUTO) 4.5 K/uL (1.8-8.9); NEUTROPHILS % (AUTO) 45.8 % (43.0-81.0); RED BLOOD CELL COUNT(AUTO) 2.39 MIL/uL (4.0-5.2); WHITE BLOOD COUNT (AUTO) 9.8 K/uL (4.3-11.0)
[2024-06-15 16:33] LABS: HEMOGLOBIN 6.8 g/dL (11.5-14.8); PLATELET COUNT (AUTO) 42 K/uL (150-450)
[2024-06-15 16:45] LABS: INR 1.03 (0.91-1.10); PROTHROMBIN TIME 10.9 SECS (9.2-11.1)
[2024-06-15 16:46] LABS: D-DIMER 6.87 mg/L(FEU (0.17-0.50)
[2024-06-15 16:55] LABS: CALCIUM, SERUM 9.1 mg/dL (8.5-10.1); CARBON DIOXIDE 29 mmol/L (21-32); CHLORIDE 100 mmol/L (98-107); GLUCOSE 79 mg/dL (74-106); POTASSIUM 4.9 mmol/L (3.5-5.1); SODIUM SERUM 133 mmol/L (136-145); UREA NITROGEN, BLOOD 20 mg/dL (7-18)
[2024-06-15 17:03] LABS: ANISOCYTOSIS 1+; BAND % (MANUAL) 1 % (0.0-5.0); EOSINOPHILS % (MANUAL) 2 % (0-4); LYMPHOCYTES % (MANUAL) 30 % (16-48); MONOCYTES % (MANUAL) 9 % (0-11.0); MYELOCYTES % 4 % (0-0); NEUTROPHILS % (MANUAL) 54 (42-76); PLATELET ESTIMATE DECREASED; STOMATOCYTES 1+
[2024-06-15 17:05] LABS: ALANINE AMINOTRANSFERASE 15 U/L (12-78); ALBUMIN 2.4 g/dL (3.4-5.0); ALKALINE PHOSPHATASE 172 U/L (46-116); ASPARTATE AMINOTRANSFERASE 50 U/L (15-37); BILIRUBIN,DIRECT 0.2 mg/dL (0.0-0.2); BILIRUBIN,TOTAL 0.7 mg/dL (0.2-1.0); NT-PRO BNP 1569 pg/mL (0-125); TOTAL PROTEIN, SERUM 8.5 g/dL (6.4-8.2)
[2024-06-15] MEDS ORDERED: IOHEXOL-350 100 ML VIAL IV ONE (18:07)
[2024-06-15] MEDS ORDERED: CT SWABBABLE VALVE TRANS SET 1 EA INFUS.SET MC ONE (18:08)
[2024-06-15] MEDS ORDERED: IV NS 0.9% 250 ML IV ONE (18:08)
== END 2024-06-15 23:27 | disposition left against medical advice (07) ==
LOC: ER 15:15
DX: J90 Pleural effusion, not elsewhere classified (principal); D64.9 Anemia, unspecified; C50.919 Malignant neoplasm of unspecified site of unspecified female breast; C79.51 Secondary malignant neoplasm of bone; Z20.822 Contact with and (suspected) exposure to COVID-19
CPT/HCPCS: 99285; 96374; 93005 ×2; 82803; 71045; 71275; 85025; 80048; 80076; 85378; 85007; 36415; 85060; 84484; 85730; 83880; 82962; 84702; 36600; 87426; J7050; Q9967; J1171